=== PATIENT | male | born 1975 | race Caucasian/White ===

== ENCOUNTER 2016-12-03 09:26 | Emergency (ER) | payer OTHER | END 2016-12-03 10:25 | disposition home or self-care (01) | LOC: ED 09:26 | DX: H72.92 Unspecified perforation of tympanic membrane, left ear (principal); M54.2 Cervicalgia ==

== ENCOUNTER 2020-05-21 16:56 | Emergency (ER) | payer OTHER, SELFPAY ==
[~2020-05-21] VITALS: Ht 170.2 cm; Wt 102.5 kg
[2020-05-21 16:58] VITALS: BP 121/91; Ht 170.2 cm; Wt 102.5 kg
== END 2020-05-21 18:02 | disposition home or self-care (01) ==
LOC: ED 16:56
DX: M79.10 Myalgia, unspecified site (principal); R51.9 Headache, unspecified; R50.9 Fever, unspecified; Z20.828 Contact with and (suspected) exposure to other viral communicable diseases
CPT/HCPCS: 87804; U0003

== ENCOUNTER 2020-05-31 05:00 | Emergency (ER) | payer OTHER ==
[~2020-05-31] VITALS: Ht 172.7 cm; Wt 104.3 kg
[2020-05-31 05:08] VITALS: BP 127/85; Ht 172.7 cm; Wt 104.3 kg
== END 2020-05-31 06:27 | disposition home or self-care (01) ==
LOC: ED 05:00
DX: M79.10 Myalgia, unspecified site (principal); M54.9 Dorsalgia, unspecified
CPT/HCPCS: J1885